=== PATIENT | female | born 1945 | race African-American/Black ===

== ENCOUNTER 2019-10-03 16:09 | Emergency (ER) | payer MEDICARE, MEDICAID ==
[~2019-10-03] VITALS: Ht 177.8 cm; Wt 81.8 kg
[2019-10-03 17:44] VITALS: BP 156/103
[2019-10-03] MEDS ORDERED: KETOROLAC 60MG/2ML VIAL IM ONE (20:15)
[2019-10-03] MEDS ORDERED: ACETAMINOPHEN 500MG TABLET PO ONE (20:15)
== END 2019-10-03 21:06 | disposition home or self-care (01) ==
LOC: ER 16:09
DX: M79.671 Pain in right foot (principal); M25.571 Pain in right ankle and joints of right foot; I10 Essential (primary) hypertension; Z98.890 Other specified postprocedural states; G43.909 Migraine, unspecified, not intractable, without status migrainosus
CPT/HCPCS: 73610; 73630; 96372; 99284; J1885

== ENCOUNTER 2022-05-20 12:55 | Emergency (ER) | payer MEDICAID, MEDICARE ==
[~2022-05-20] VITALS: Ht 167.6 cm; Wt 80.0 kg
[2022-05-20 13:30] VITALS: BP 116/81
[2022-05-20] MEDS ORDERED: LIDOCAINE HCL 1% 20ML VIAL (Pyxis) INJ INFIL ONE (14:00)
== END 2022-05-20 16:47 | disposition home or self-care (01) ==
LOC: ER 12:55
DX: S01.81XA Laceration without foreign body of other part of head, initial encounter (principal); I10 Essential (primary) hypertension; G40.909 Epilepsy, unspecified, not intractable, without status epilepticus; W01.190A Fall on same level from slipping, tripping and stumbling with subsequent striking against furniture, initial encounter; Y93.89 Activity, other specified; Y92.018 Other place in single-family (private) house as the place of occurrence of the external cause
CPT/HCPCS: 12013; 99284; J3490

== ENCOUNTER 2022-05-29 12:01 | Emergency (ER) | payer MEDICARE ==
[~2022-05-29] VITALS: Ht 165.1 cm; Wt 91.0 kg
[2022-05-29 12:24] VITALS: BP 132/85
== END 2022-05-29 13:28 | disposition home or self-care (01) ==
LOC: ER 12:01
DX: Z48.02 Encounter for removal of sutures (principal); I10 Essential (primary) hypertension; G40.909 Epilepsy, unspecified, not intractable, without status epilepticus; Z88.5 Allergy status to narcotic agent
CPT/HCPCS: 99281

== ENCOUNTER 2023-02-02 16:25 | Emergency (ER) | payer MEDICARE ==
[~2023-02-02] VITALS: Ht 170.2 cm; Wt 91.0 kg
[2023-02-02 16:46] VITALS: O2SAT 100
[2023-02-02 17:54] LABS: BASOPHILS % 1.1 % (0.0-2.0); DIFFERENTIAL COMMENT 0; EOSINOPHILS % 2.4 % (0.0-5.0); HEMATOCRIT. 32.9 % (36.0-48.0); HEMOGLOBIN. 10.3 g/dL (12.0-16.0); LYMPHOCYTES % 39.8 % (20.0-50.0); MEAN CORPUSCULAR HEMOGLOBIN 22.2 pg (28.0-32.0); MEAN CORPUSCULAR HGB CONC 31.3 g/dL (31.0-37.0); MEAN CORPUSCULAR VOLUME 70.7 fL (81.0-99.0); MEAN PLATELET VOLUME 7.7 fl (7.4-10.4); MONOCYTES % 10.7 % (2.0-8.0); PLATELET 337 x1000/uL (130-400); RED BLOOD CELL COUNT 4.65 mill/uL (4.2-5.4); RED CELL DISTRIBUTION WIDTH 17.7 % (11.6-14.6); WHITE BLOOD COUNT 7.8 x1000/uL (4.5-11.0)
[2023-02-02 18:02] LABS: CHLORIDE 106 mEq/L (98-107); INDEX HEMOLYSI 1 (1-3); INDEX ICTERIC 1 (1-4); INDEX LIPEMIC 1 (1-3)
[2023-02-02 18:09] LABS: ALANINE AMINOTRANSFERASE 21 IU/L (13-61); ALBUMIN 3.8 g/dL (3.4-5.0); ASPARTATE AMINOTRANSFERASE 27 IU/L (15-37); BILIRUBIN TOTAL 0.9 mg/dL (0.1-1.0); CALCIUM 9.6 mg/dL (8.5-10.1); CARBON DIOXIDE 25 mEq/L (21-32); CREATININE 1.2 mg/dL (0.6-1.3); GLUCOSE 103 mg/dL (70-105); PROTEIN TOTAL 9.5 g/dL (6.0-8.3); UREA NITROGEN BLOOD 27 mg/dL (7-21)
[2023-02-02 19:42] LABS: SODIUM 136 mEq/L (136-145)
[2023-02-03 02:05] VITALS: BP 113/70; PULSE 85; RESP 18; TEMP 98.6
== END 2023-02-03 02:06 | disposition home or self-care (01) ==
LOC: ER 16:25
DX: R56.9 Unspecified convulsions (principal); I10 Essential (primary) hypertension; Z88.5 Allergy status to narcotic agent
CPT/HCPCS: 36415; 80053; 83605; 85025; 99284

== ENCOUNTER 2023-11-16 15:43 | Emergency (ER) | payer MEDICARE, OTHER ==
[~2023-11-16] VITALS: Ht 177.8 cm; Wt 79.4 kg
[2023-11-16 16:09] VITALS: TEMP 98.3; O2SAT 100
[2023-11-16] MEDS ORDERED: TETANUS, DIPHTHERIA, PERTUSSIS VAC/PF 0.5ML (>10YR OLD) IM ONE (16:45)
[2023-11-16] MEDS: LIDOCAINE HCL 1% 20ML VIAL INFIL ONE (18:30)
[2023-11-16] MEDS: TETANUS, DIPHTHERIA, PERTUSSIS VAC/PF 0.5ML (>10YR OLD) IM ONE (19:14)
[2023-11-16 20:15] VITALS: BP 132/80; PULSE 69; RESP 10; O2SAT 99
== END 2023-11-16 21:57 | disposition admitted as inpatient to this hospital (09) ==
LOC: ER 15:43
DX: R55 Syncope and collapse (principal); S51.811A Laceration without foreign body of right forearm, initial encounter; I10 Essential (primary) hypertension; Z88.5 Allergy status to narcotic agent; Z86.59 Personal history of other mental and behavioral disorders; Z90.10 Acquired absence of unspecified breast and nipple; W18.30XA Fall on same level, unspecified, initial encounter; Y93.89 Activity, other specified; Y92.89 Other specified places as the place of occurrence of the external cause; Y99.8 Other external cause status
CPT/HCPCS: 99285; 70450; 71045; 90715; 12002; 90471; 93005; J3490